=== PATIENT | female | born 1950 | race Caucasian/White ===

== ENCOUNTER 2017-12-20 08:27 | Inpatient (IN) | payer MEDICARE, OTHER ==
--- NOTE | 2017-11-30 10:55 | ANES ---
Anesthesia Pre Procedure Eval HOME MEDICATIONS pantoprazole 40 mg tablet,delayed release 40 mg PO DAILY #90 tab 09/25/17 [Last Taken Unknown] cholecalciferol (vitamin D3) 2,000 unit capsule 2,000 unit PO DAILY 09/27/17 [Last Taken Unknown] doxylamine succinate 25 mg tablet 50 mg PO HS PRN 09/27/17 [Last Taken Unknown] gabapentin 300 mg capsule 300 mg PO BID 09/27/17 [Last Taken Unknown] tramadol 50 mg tablet 50 mg PO Q8H PRN tab 09/27/17 [Last Taken Unknown] atorvastatin 40 mg tablet 40 mg PO DAILY #90 tab 10/31/17 [Last Taken Unknown] alendronate 70 mg tablet 70 mg PO QWEEK #4 tab 11/01/17 [Last Taken Unknown] clobetasol 0.05 % topical cream 1 applic TP DAILY 11/01/17 [Last Taken Unknown] calcium citrate 200 mg (950 mg) tablet 200 mg PO DAILY tab 11/09/17 [Last Taken Unknown] Allergies/Adverse Reactions: Allergies Allergy/AdvReac Type Severity Reaction Status Date / Time oxycodone Allergy Mild rapid Verified 11/29/17 08:25 heart rate, dizziness, nausea - Planned Procedure Planned Procedure: L Arthroplasty Total Knee Medication List Reviewed:: Yes Allergies Verified: Yes Medical History (Last Reviewed 11/30/17 @ 10:53 by Luke Gomez CRNA) Hyperlipidemia (Chronic) GERD (gastroesophageal reflux disease) (Chronic) Onset Date: Unknown Anemia Onset Date: Unknown CAD (coronary artery disease) Onset Date: Unknown COPD (chronic obstructive pulmonary disease) Onset Date: Unknown Chronic back pain Onset Date: Unknown History of kidney stones IBS (irritable bowel syndrome) Onset Date: Unknown Incontinence Onset Date: Unknown Migraines Onset Date: Unknown Nerve pain Onset Date: Unknown Osteoporosis Onset Date: Unknown Palpitations Onset Date: Unknown Sinusitis Onset Date: Unknown Vitamin D deficiency Onset Date: Unknown Surgical History (Last Reviewed 11/30/17 @ 10:53 by Luke Gomez CRNA) History of hernia surgery H/O section Onset Date: Unknown H/O dilation and curettage Onset Date: Unknown H/O left knee surgery Onset Date: ~03/2017 H/O oophorectomy Onset Date: Unknown H/O tubal ligation Onset Date: Unknown H/O vaginal surgery Onset Date: Unknown History of cholecystectomy Onset Date: Unknown Family History (Last Reviewed 11/30/17 @ 10:53 by Luke Gomez CRNA) Aunt Breast cancer Brother Diabetes Brother Irregular heart rate Father Myocardial infarction Diabetes Cancer Grandfather Diabetes Grandmother Breast cancer Diabetes - Family Anesthesia History Family History:: no untoward family reactions to anesthesia, no familial bleeding tendencies, no family history of clotting disorders, no family history of premature - Airway/Neck/Teeth Within Normal Limits:: Yes Denture Type: Full- Upper Mallampatti Score: 1 Thyromental (T-M) distance: > 6 cm Mandibulo Hyoid distance: > 3 cm - Respiratory Smoking Status: Never smoker Discussed smoking cessation including day of surgery: No Sleep Apnea currently treated: No Sleep Apnea by current assessment: No Discussed Risks/Treatment of MARIBELL: No - Cardiovascular Tolerates Activity: Poor Heart Sounds: S1 & S2, Regular - Anesthesia Assessment and Plan ASA Class: PS, III Anesthesia Type Plan: Block - Left ultrasound guided peripheral nerve block for postop analgesia, Spinal
[~2017-12-20 08:27] MED LIST: MORPHINE SULFATE 15 MG TABLET.SA PO PRN; ROPIVACAINE HCL/PF 100 MG, EPINEPHrine 0.2 MG, KETOROLAC TROMETHAMINE 30 MG in NORMAL S... IJ PRN; TRANEXAMIC ACID 1,000 MG in NORMAL SALINE 100 ML IV PRN; ceFAZolin SODIUM 1 GM VIAL IV PRN
[2017-12-20] MEDS: RINGER'S SOLUTION,LACTATED 1,000 ML IV PRN ×4 (09:38→19:21)
[2017-12-20] MEDS ORDERED: ONDANSETRON HCL/PF 2 MG/ML VIAL IV PRN (12:21)
[2017-12-20] MEDS ORDERED: ZOLPIDEM TARTRATE 5 MG TABLET PO PRN (12:21)
[2017-12-20] MEDS ORDERED: MAGNESIUM HYDROXIDE 30 ML UDC PO PRN (12:21)
[2017-12-20] MEDS ORDERED: MAG HYDROX/ALUMINUM HYD/SIMETH 30 ML UDC PO PRN (12:21)
[2017-12-20] MEDS ORDERED: diphenhydrAMINE HCL 50 MG/ML VIAL IV PRN (12:21)
[2017-12-20] MEDS ORDERED: DEXTROSE 5%-LACTATED RINGERS 1,000 ML IV PRN (12:21)
[2017-12-20] MEDS ORDERED: ACETAMINOPHEN 500 MG TABLET PO PRN (12:21)
[2017-12-20] MEDS ORDERED: DOXYLAMINE SUCCINATE 50 MG PO PRN (12:23)
--- NOTE | 2017-12-20 12:26 | OR ---
Operative Report - Dictated Report Narrative: Date: 12/20/2017 Preoperative diagnosis: Left Knee degenerative joint disease. Postoperative diagnosis: Left Knee degenerative joint disease. Procedure: Left Total knee arthroplasty. Surgeon: Bob Woods M.D. Freelance Recruiter: Ernesto Jaeger PA-C Anesthesia: Spinal with regional block and local periarticular joint injection. Complications: None Specimens: Bone for disposal. Estimated blood loss: Minimal. Tourniquet time: 90 Minutes at 350 millimeters of mercury. Retained implants: Depuy Attune size 6 narrow left lugged cemented posterior stabilized femoral component. Size 4 fixed-bearing cemented tibial platform. 6 by 5 millimeter posterior stabilized cross-linked tibial insert. 32 millimeter medialized patella button. Indications: Mrs. Mackey is a 67-year-old female who has had long-standing left knee pain and arthrosis. This patient was followed in my clinic for period of time with significant complaints of left knee pain consistent with arthritic changes. She had failed conservative measures including, but not limited to, activity modification, passage of time, medications, and other conservative measures. Patient wished to proceed with surgical treatment. The risks, benefits, and alternatives were discussed in clinic. The risks of , blood clots, bleeding, infection, nerve/tendon blood vessel/ injury, malposition of components, intraoperative fracture, postoperative limited range of motion, persistent pain, failure of components, and need for additional procedures. Patient wished to proceed consent was obtained after answering all questions. Procedure: After marking the correct extremity on the floor, the patient was taken to the operating room. A timeout was performed. IV antibiotics consisting of Ancef were administered prior to the procedure. A regional followed by spinal anesthetic was induced by anesthesia, per my request, on the operative table with all bony prominences well-padded. Chanel catheter was placed, and a bump was placed under the operative side buttock. SCDs and ROMY hose were utilized on the nonoperative leg. A well-padded tourniquet was applied to the operative thigh. The operative leg was then pre-scrubbed with alcohol prepped, and draped in a standard sterile fashion. After exsanguinating the extremity with an Esmarch bandage, the tourniquet was inflated. After marking out the anterior knee for standard incision centered over the patella, the skin was incised and dissected down to the joint retinaculum. The joint retinaculum was marked out as well as the horizontal axis of the patella, and a standard medial parapatellar arthrotomy was then made. The most proximal aspect of the quadriceps tendon and the patella tendon insertion were protected from release. A partial synovectomy was performed as well as a resection of the infrapatellar fat pad. The distal femoral fat pad proximal to the trochlea was also resected using cautery. The soft tissues were elevated off the medial aspect of the proximal tibia using a Frank elevator ensuring that we did not transect the medial collateral ligament. Upon initial evaluation range of motion was approximately 5 degrees to 120 degrees of flexion. There were signs of advanced arthrosis in the medial, lateral, and patellofemoral joint spaces. There were large marginal osteophytes which were removed with a rongeur. The knee was hyperflexed and the patella was tucked laterally. Protecting the surrounding soft tissues with Homans, an entry drill was placed down the femoral canal using Whitesides line for guidance into the entry point. The intramedullary femoral alignment nicolle was utilized in order to cut the distal fe mur in 5 degrees of valgus resecting 10 millimeters of bone. Next the distal femur was sized to a size 6. A posterior referencing guide was utilized to place the distal femoral cutting block in 3 degrees of external rotation. This was pinned into place. The rotation was confirmed both visually and based on anatomic landmarks. The 4 in 1 cutting jig of the appropriate size was utilized in order to make all bony cuts. The angle wing was used to ensure no notching. Retractors were utilized in order to protect surrounding soft tissues. This cut did not result in any excessive notching. We then cut the box centered over the distal femur. This allowed for resection of the anterior and posterior cruciate ligaments. I then turned my attention to the preparation of the tibia. Using an extra medullary tibial alignment nicolle, 5 millimeters of bone was resected off the medial articular surface. This was made perpendicular to the mechanical axis of the joint with the alignment nicolle centered over the ankle mortise. The alignment nicolle was checked and was noted to be parallel to the mechanical axis, centered over the medial one third of the tibial tubercle, paralleling the anterior surface of the tibia. We then turned our attention to the remaining meniscus and soft tissues. These were removed while protecting the surrounding ligaments and soft tissues. The marginal osteophytes off the anterior, posterior, medial, lateral aspects of the femur and tibia were removed. The tibia was sized out to a size 4. Next the tibia was drilled and punched in an externally rotated position. Next the trial femur and a series of tibial inserts were utilized in order to allow for full extension and maximal flexion. It was found that a 5 millimeter insert gave the best range of motion and stability at multiple flexion points as well as at full extension there was less than 2 mm of gapping both medially and laterally. There is minimal anterior translation with the knee at 90 degrees of flexion and no signs of being able to dislocate the knee. The patella was then prepared. The initial thickness was 22 millimeters. This was reamed down to 12 millimeters parallel to the anterior surface of the patella. It was sized out to a size 32 medialized patella button. This was then drilled and trialed. Without any medial restraint the patella tracked appropriately and did not sublux or dislocate. At this point, it was felt these were the appropriate sized implants, and all trials were removed. The standard periarticular joint injection consisting of ropivacaine, Toradol, and epinephrine were injected into the periarticular joint tissues. The bony surfaces were thoroughly irrigated with a pulsatile-suction saline irrigation device. A bone plug from the prior resected anterior chamfer cut was placed into the drill hole at the distal femur. The bony surfaces were then dried in preparation for placement of the implants. The cement was vacuum mixed per the jack tamp operator's instructions. The cement was placed on the dry bony surfaces and posterior aspect of the implants. The implants were impacted into place, removing all extruded cement. At this point anesthesia administered tranexamic acid per protocol intravenously. The knee was placed in extension with axial loading with the trial insert while the cement cured. Once the cement cured, all remaining extruded cement was removed. The knee was placed through a range of motion with the trial insert to ensure appropriate range of motion and stability. Final range of motion was approximately 0 to 120 degrees. The knee was again thoroughly irrigated with pulsatile saline lavage. The final polyethylene insert was then impacted into place ensuring no retained soft tissues. The remaining periarticular joint injection was injected. A medium Hemovac drain was placed exiting superior laterally. The knee was then placed over a triangle and the arthrotomy was closed with interrupted #1 Vicryl after thoroughly irrigating the joint. The deep and subcutaneous tissues were closed with interrupted 0 and 3-0 Vicryl respectively. Skin was closed with a running subcutaneous 3-0 Monocryl and Prineo Dermabond dressing. 4 x 4's, Sof-Rol, and a full leg Ascencion wrap were applied. All sponge, needle, blade, and instrument counts were correct prior to closing the wounds. Postoperative condition: The patient was awoken and transferred to the postanesthesia care unit in stable condition. Plan is to be admitted to the inpatient medical/surgical floor postoperatively for 24 hours of IV antibiotics, physical therapy, occupational therapy, and medical comanagement. Patient will be weightbearing as tolerated with range of motion as tolerated. DVT prophylaxis will be with SCDs, ROMY hose, and pharmacological anticoagulation. Anticipated hospital stay is approximately 1-3 days.
--- NOTE | 2017-12-20 13:33 | ANES ---
Post Anesthesia Discharge - Transfer of Care Transfer of Care handoff given to nurse: Yes - Discharge from PACU Discharge from PACU when meets criteria: Yes
--- NOTE | 2017-12-20 13:33 | ANES ---
Post Anesthesia Assessment - Vital Signs Vitals: Last Vital Signs Temp 36.3 C 12/20/17 13:05 Pulse 68 12/20/17 13:05 Resp 24 H 12/20/17 13:05 BP 102/51 12/20/17 13:05 Pulse Ox 95 12/20/17 13:05 Airway Patency: Normal - Mental Status Level Of Consciousness: Awake - Pain Level Pain Score: 0 - N/V Assessment Nausea/Vomiting Presence: None Dehydration:: No
--- NOTE | 2017-12-20 13:36 | ANES ---
Anesthesia Procedure Note Procedure Note: ANESTHESIA PROCEDURE NOTE Date of procedure:[]. 12/20/2017 Time of procedure:[]. 1030 Performed by: Daniel Mejia CRNA Coordinator Cardiopulmonary Services: [] Fay Mckeon RN . Preprocedure diagnosis: []. Left knee DJD. Desire for postoperative analgesia. Post procedure diagnosis: Same. Procedure:[] Ultrasound-guided left adductor canal block. Indications: []. Postoperative analgesia. Findings: [] Patient brought to operating room #2 and placed in a supine position. Patient was given IV sedation. Patient's left inner thigh was prepped with ChloraPrep. Ultrasound was utilized to identify abductor canal. 1 mL of 1% Xylocaine was injected into the skin and subcutaneous tissue at the target site. 20-gauge 4 inch Stimuplex regional block needle was advanced under ultrasound guidance until tip of needle was located in the adductor canal. 20 mL of 0.25% Marcaine with epinephrine 1-200 was injected with adequate spread of local anesthesia noted. EBL: Minimal. Fluids: N/A. Specimen: N/A. Post procedure condition: The patient tolerated the procedure well. No complications were noted. Thank you for this consultation Daniel Mejia CRNA
[2017-12-20] MEDS: KETOROLAC TROMETHAMINE 15 MG/ML VIAL IV SCH ×2 (13:47→19:21)
[2017-12-20] MEDS: MORPHINE SULFATE 2 MG/ML DISP.SYRIN IV PRN ×2 (14:28→15:44)
[2017-12-20] MEDS: ceFAZolin SODIUM 1 GM in DEXTROSE 5 % IN WATER 100 ML IV SCH ×4 (15:41→21:38)
[2017-12-20] MEDS: GABAPENTIN 300 MG CAPSULE PO SCH ×2 (16:02→21:08)
[2017-12-20] MEDS: MORPHINE SULFATE 10 MG/0.5 ML SYRINGE PO PRN ×2 (17:38→23:08)
[2017-12-20] MEDS ORDERED: ROSUVASTATIN CALCIUM 20 MG TABLET PO SCH (21:00)
[2017-12-20] MEDS ORDERED: SENNOSIDES/DOCUSATE SODIUM 1 TAB TABLET PO SCH (21:00)
[2017-12-20] MEDS: MORPHINE SULFATE 15 MG TABLET.SA PO SCH (21:24)
[2017-12-21] MEDS: MORPHINE SULFATE 10 MG/0.5 ML SYRINGE PO PRN (01:49)
[2017-12-21] MEDS: KETOROLAC TROMETHAMINE 15 MG/ML VIAL IV SCH ×3 (01:50→15:34)
[2017-12-21] MEDS: ceFAZolin SODIUM 1 GM in DEXTROSE 5 % IN WATER 100 ML IV SCH ×2 (04:05)
[2017-12-21 05:35] LABS: Hematocrit 36.3 % (37.0-47.0); Hemoglobin 11.3 gm/dL (12.5-16.0); Mean Cell Volume 92.8 fl (78-100); Mean Corpuscular Hemoglobin 28.9 pg (27-31); Mean Corpuscular Hgb Conc 31.1 g/dl (32-36); Mean Platelet Volume 9.5 fl (8-12.5); Platelet Count 306 K/mm3 (150-450); Red Blood Count 3.91 M/mm3 (4.2-5.4); Red Cell Distribution Width 12.3 % (11.5-14.0); White Blood Count 10.7 K/mm3 (4.0-10.5)
[2017-12-21 05:40] LABS: Anion Gap 9.3 mmol/L (6.8-13.8); BUN/Creatinine Ratio 8.9 (9.0-21.6); Calcium * 7.6 mg/dL (7.9-10.9); Carbon Dioxide 30.7 mmol/L (24-32.6)
[2017-12-21] MEDS: GABAPENTIN 300 MG CAPSULE PO SCH ×2 (06:48→15:33)
[2017-12-21] MEDS ORDERED: PANTOPRAZOLE SODIUM 40 MG TABLET.EC PO SCH (07:00)
[2017-12-21] MEDS: MORPHINE SULFATE 15 MG TABLET.SA PO SCH (08:15)
[2017-12-21] MEDS ORDERED: CHOLECALCIFEROL 1,000 UNIT CAPSULE PO SCH (09:00)
[2017-12-21] MEDS ORDERED: CALCIUM CARBONATE 500 MG TAB.CHEW PO SCH (09:00)
[2017-12-21] MEDS ORDERED: CLOBETASOL PROPIONATE 15 APPL TUBE TP SCH (09:00)
[2017-12-21] MEDS ORDERED: ENOXAPARIN SODIUM 40 MG/0.4 ML SYRG SC SCH (11:22)
--- NOTE | 2017-12-21 16:22 | DS ---
(1) Acute blood loss anemia Problem: Acute (2) Status post total left knee replacement Problem: Acute (3) CAD (coronary artery disease) Problem: Chronic (4) COPD (chronic obstructive pulmonary disease) Problem: Chronic Qualifiers: (5) GERD (gastroesophageal reflux disease) Problem: Chronic Qualifiers: (6) Hyperlipidemia Problem: Chronic Qualifiers: (7) Osteoporosis Problem: Chronic (8) Nicotine abuse Problem: Chronic Description of Stay: Mrs. Mackey was admitted to the floor after undergoing left total knee arthroplasty. Tolerated this well. Was admitted to the floor postoperatively for 24 hours of IV antibiotics, pain control, medical comanagement, and occupational and physical therapy. OT and PT were consulted to assist with activities of daily living and ambulation. Was made weightbearing as tolerated with range of motion as tolerated. Pain was initially controlled with IV regimen. This was transitioned to oral once tolerating a by mouth intake. Was resumed on home diet and medications. Had a Chanel catheter inserted and the operating room which was discontinued on postoperative day 1. A drain was placed intraoperatively into the knee which was discontinued on postoperative day 1. Lovenox SCD and ROMY hose were utilized for DVT prophylaxis. Vital signs remained stable to the hospital course. Serial labs were obtained which showed a final hemoglobin of 11.3 grams. BMP was reviewed and was stable. Physical examination throughout the hospital course showed an extremity that had sensation that was intact to light touch, palpable pulses, a benign wound, motor intact to the toes, ankle, and knee. Knee range of motion was approximately 5 degrees to 60 degrees. Once an oral pain regimen was tolerated and physical therapy goals were met, it was felt that they were stable for discharge to home. Instructions: Continue with weightbearing as tolerated and range of motion as tolerated. It is okay to shower and get the wound wet as long as there is no drainage from the wound. Do not bathe or soak the wound. If there is any drainage from the wound keep the wound clean and dry and cover with dry gauze and tape. Change every 2- 3 days as needed if there is any drainage. Cover wound while showering if there is any drainage. Continue with physical therapy. Resume home diet. Report any fever over 101.5 Fahrenheit, uncontrolled pain, increased drainage, foul odor of drainage, new or increased calf pain or shortness of breath, or any other significant complaints. A 325mg dialy aspirin will be started after finishing anticoagulation if not allergic. Continue with ROMY hose on the operative extremity until instructed otherwise. No driving until instructed otherwise. Follow up in approximately 10-14 days. Procedures Performed: see notes below List Procedures: Left total knee arthroplasty Results and Findings: Lab Pending Results 12/21/17 05:15: WBC 10.7 H, RBC 3.91 L, Hgb 11.3 L, Hct 36.3 L, MCV 92.8, MCH 28.9, MCHC 31.1 L, RDW 12.3, Plt Count 306, MPV 9.5 12/21/17 05:15: Sodium 142, Plasma Sodium 142, Potassium 4.0 D, Chloride 106, Carbon Dioxide 30.7, Anion Gap 9.3, BUN 8, Creatinine 0.90, Est GFR (Non-Af Amer) 66, BUN/Creatinine Ratio 8.9 L, Random Glucose 115 H, Calcium 7.6 L Discharge Location: Home Disposition: Home self-care Condition: Good Discharge Activity: Activity as tolerated, Weight bearing Discharge Diet: General/regular food Referrals: Kathy Alexander FNP [Primary Care Provider] - Prescriptions (Any new or edited meds): Morphine Sulfate 1 - 2 tab PO Q4H PRN #60 tab PRN Reason: Pain Morphine Sulfate [Ms Contin] 15 mg PO Q12H #20 tablet.sa Rivaroxaban [Xarelto] 10 mg PO DAILY #7 tab Sennosides/Docusate Sodium [Senokot-S] 2 tab PO HS #60 tablet Complete Home Medications List: Complete Home Medication List: pantoprazole 40 mg tablet,delayed release 40 mg PO DAILY #90 tab 09/25/17 cholecalciferol (vitamin D3) 2,000 unit capsule 2,000 unit PO DAILY 09/27/17 doxylamine succinate 25 mg tablet 50 mg PO HS 09/27/17 atorvastatin 40 mg tablet 40 mg PO DAILY #90 tab 10/31/17 alendronate 70 mg tablet 70 mg PO QWEEK #4 tab 11/01/17 calcium citrate 200 mg (950 mg) tablet 200 mg PO DAILY tab 11/09/17 gabapentin 300 mg capsule 300 mg PO DAILY cap 12/01/17 Gabapentin 600 mg PO DAILY 12/20/17 Morphine Sulfate 1 - 2 tab PO Q4H PRN #60 tab 12/21/17 Morphine Sulfate [Ms Contin] 15 mg PO Q12H #20 tablet.sa 12/21/17 Rivaroxaban [Xarelto] 10 mg PO DAILY #7 tab 12/21/17 Sennosides/Docusate Sodium [Senokot-S] 2 tab PO HS #60 tablet 12/21/17 Amb Orders for Discharge: PT Evaluation and Treatment* Facility: [facility], Location: Rehabilitation Services
[2017-12-21 17:41] VITALS: BP 140/58
== END 2017-12-21 17:20 | disposition home or self-care (01) | DRG 470 ==
LOC: MS 08:27 → EDSTATUS 10:15
PROVIDERS: ADMIT Orthopaedic Surgery; ATTEND Orthopaedic Surgery
CPT/HCPCS: 36415; 73560; 80048; 85027; 90686; 97110; 97116; 97161; 97165; J2405

== ENCOUNTER 2017-12-31 14:54 | Observation (INO) | payer MEDICARE, OTHER ==
--- NOTE | 2017-12-31 15:48 | ERNOTE ---
Medical Problem HPI - Narrative Date of Service: 12/31/17 - Patient comes to the ER complaining of nausea and vomiting off and on for the past 5-6 days. She is also concerned with being cold and having shaking chills. - General Chief Complaint: Nausea/Vomiting Time Seen by Provider: 12/31/17 15:10 Source: patient, family Exam Limitations: no limitations - Immun/Allergies/Home Medications Immunizations: IMMUNIZATION HX Immunizations Up to Date Yes History of Influenza Vaccine Yes Hx Pneumococcal Vaccination Yes Allergies/Adverse Reactions: Allergies oxycodone Allergy (Mild, Verified 12/31/17 15:19) rapid heart rate, dizziness, nausea Home Medications: HOME MEDICATIONS cholecalciferol (vitamin D3) 2,000 unit capsule 2,000 unit PO DAILY 09/27/17 [Last Taken 12/19/17] atorvastatin 40 mg tablet 40 mg PO DAILY #90 tab 10/31/17 [Last Taken 12/19/17] alendronate 70 mg tablet 70 mg PO QWEEK #4 tab 11/01/17 [Last Taken 12/19/17] gabapentin 300 mg capsule 300 mg PO DAILY cap 12/01/17 [Last Taken 12/19/17] RX: Gabapentin 600 mg PO DAILY 12/20/17 [Last Taken Unknown] RX: Morphine Sulfate 1 - 2 tab PO Q4H PRN #60 tab 12/21/17 [Last Taken Unknown] RX: Morphine Sulfate [Ms Contin] 15 mg PO Q12H #20 tablet.sa 12/21/17 [Last Taken Unknown] RX: Sennosides/Docusate Sodium [Senokot-S] 2 tab PO HS #60 tab 12/21/17 [Last Taken Unknown] pantoprazole 40 mg tablet,delayed release 40 mg PO DAILY #90 tab 12/25/17 [Last Taken Unknown] - Pain Score Pain Score #1 Pain Score: 0 - History of Present History Narrative: She also complains of feeling very hot and cold and having shaking chills. She has left the dressing in place from a left knee replacement done by Dr. Woods on the Nov. when removed, there does not appear to be any cellulitis or infection. There is no drainage. She did have a catheter in her bladder for the surgery. She complains of SOB only when she was having the shaking chills. She dos not complain of pain. She is afebrile on admission. Date (Duration): 12/20/17 Timing: getting worse, intermittent Severity: moderate Modifying Factors - (Improves): Present: other - nothing Modifying Factors - (Worsens): Present: other - nothing Review of Systems - Review of Systems Constitutional: Present: fever, chills, fatigue EYE: Present: no symptoms reported ENT: Present: no symptoms reported Respiratory: Present: no symptoms reported, other - smoker Cardiology: Present: no symptoms reported, other - denies pain Gastrointestinal/Abdominal: Present: nausea, vomiting, eating less. Absent: diarrhea Genitourinary: Present: no symptoms reported Musculoskeletal: Present: no symptoms reported Skin: Present: no symptoms reported. Absent: rash, change in color Neurological: Present: no symptoms reported Endocrine: Present: no symptoms reported Hematologic/Lymphatic: Present: no symptoms reported Psych: Present: no symptoms reported All Other Systems: All systems neg except as marked Medical History (Last Reviewed 12/31/17 @ 15:16 by Fay Duarte RN) Hyperlipidemia (Chronic) Osteoporosis (Chronic) Onset Date: Unknown Migraines (Chronic) Onset Date: Unknown GERD (gastroesophageal reflux disease) (Chronic) Onset Date: Unknown CAD (coronary artery disease) (Chronic) Onset Date: Unknown COPD (chronic obstructive pulmonary disease) (Chronic) Onset Date: Unknown Chronic back pain (Chronic) Onset Date: Unknown Anemia Onset Date: Unknown History of kidney stones IBS (irritable bowel syndrome) Onset Date: Unknown Incontinence Onset Date: Unknown Nerve pain Onset Date: Unknown Palpitations Onset Date: Unknown Sinusitis Onset Date: Unknown Vitamin D deficiency Onset Date: Unknown Surgical History: Surgical History (Last Reviewed 12/31/17 @ 15:16 by Fay Duarte RN) History of hernia surgery right inguinal, hiatal hernia Right trigger finger surgery, 3rd digit S/P total knee arthroplasty Onset Date: ~12/20/17 left H/O section Onset Date: Unknown H/O dilation and curettage Onset Date: Unknown H/O left knee surgery Onset Date: ~03/2017 Dr Puente at [facility] H/O oophorectomy Onset Date: Unknown H/O tubal ligation Onset Date: Unknown H/O vaginal surgery Onset Date: Unknown History of cholecystectomy Onset Date: Unknown Family History: Family History (Last Reviewed 12/31/17 @ 15:16 by Fay Duarte RN) Aunt Breast cancer Brother Diabetes Brother Irregular heart rate Father Myocardial infarction Diabetes Cancer Grandfather Diabetes Grandmother Breast cancer Diabetes Social History: Preferred Language Syriac Do you have any synagogue or No cultural preference? Smoking Status Current every day smoker Alcohol Use none Drug Use none (Last Updated 12/26/17 @ 10:41 by Bob Woods MD) No Social History Section defined Physical Exam - Physical Exam General Appearance: Present: wd/wn, alert, mild distress, obese, other - shaking at times concerned with being cold Head Exam: Present: normal inspection, no evidence of injury Eye Exam: Normal inspection: bilateral, PERRL: bilateral, EOMI: bilateral Ears, Nose, Throat: Present: normal ENT inspection, normal pharynx Neck: Present: normal inspection, nontender Respiratory: Present: no respiratory distress, no accessory muscle use, chest nontender, lungs clear, rales - few rales at bilateral bases, otherwise clear Cardiovascular/Chest: Present: regular rate, rhythm, no murmur, normal pe ripheral pulses Peripheral Pulses: N=norm/S=strong/W=weak/B=bound/A=absent: Carotid (R): Normal, Carotid (L): Normal, Radial (R): Normal, Dorsalis-pedis (R): Normal, Dorsalis- pedis (L): Normal Gastrointestinal/Abdominal: Present: normal bowel sounds, nontender, nondistended, soft Rectal Exam: Present: deferred Pelvic Exam: Present: deferred Back Exam: Present: normal inspection, normal range of motion, no CVA tenderness, no vertebral tenderness Extremity Exam: Present: normal except - - mild tenderness around incision and knee joint of surgery (wound clean and dry), mild left pedal edema with decrease in ROM left knee post surgical. 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 - Vital Signs Patient's Vital Signs:: I have reviewed the patient's vital signs. Vital Signs: Vital Signs 12/31/17 15:05 Temperature 36.5 C Pulse Rate 85 Respiratory Rate 16 Blood Pressure 164/85 H O2 Sat by Pulse Oximetry 98 - EKG EKG: NSR EKG read: Interp. by me EKG Comments: Essentially normal - X-Ray X-Ray #1 X-Ray: chest Interpretation: Interp. by me X-ray Comments: NAD, cardiolmegaly - CT/Ultrasound CT/Ultrasound Narrative: No pulmonary emboli; aorta and vasculature wnl. No infiltrates or masses. See report. - Progress/Reassessment Chief Complaint: Nausea/Vomiting Progress:: Unchanged Progress Note-Subjective: 12/31/17 18:02 D-dimer was elevated to 2.1. CT scan of chest ruled out pulmonary emboli. Plan - Plan Plan: Dr. Woods to examine surgical area. Departure Clinical Impression: Nausea & vomiting, Chills (without fever) - Departure Disposition: Short Term Hospital Inpatient Condition: Fair
[2017-12-31] MEDS: NORMAL SALINE 1,000 ML IV PRN (15:49)
[2017-12-31 15:55] LABS: Hematocrit 35.1 % (37.0-47.0); Hemoglobin 11.6 gm/dL (12.5-16.0); Mean Cell Volume 88.2 fl (78-100); Mean Corpuscular Hemoglobin 29.1 pg (27-31); Mean Platelet Volume 8.7 fl (8-12.5); Neutrophil # 5.9 K/mm3 (1.3-6.0); Neutrophil % 68.5 % (42-75.0); Platelet Count 497 K/mm3 (150-450); Red Blood Count 3.98 M/mm3 (4.2-5.4); Red Cell Distribution Width 11.9 % (11.5-14.0); White Blood Count 8.5 K/mm3 (4.0-10.5)
[2017-12-31] MEDS ORDERED: DEXTROSE 5 % IN WATER 100 ML BAG IV ONE (16:18)
[2017-12-31 16:20] LABS: Troponin I Less than 0.017 ng/mL (0.00-0.10)
[2017-12-31 16:27] LABS: ALT 21 U/L (19-67); AST 14 U/L (0-48); Albumin * 2.9 gm/dl (3.4-5.0); Alkaline Phosphatase * 84 U/L (50-170); BNP * 227 pg/mL (5-325); BUN/Creatinine Ratio 7.5 (9.0-21.6); Bilirubin, Total 0.5 mg/dL (0.0-1.1); Blood Urea Nitrogen 5 mg/dL (3-23); Ca. Corrected For Albumin 8.7 mg/dL (8.4-10.2); Calcium * 8.1 mg/dL (7.9-10.9); Carbon Dioxide 25.2 mmol/L (24-32.6); Chloride 109 mmol/L (97-106); Glucose * 111 mg/dL (70-110); Potassium 3.2 mmol/L (3.4-4.6); Sodium 143 mmol/L (132-142); Total Protein 6.6 gm/dL (6.2-8.2)
[2017-12-31 16:45] LABS: Urine Appearance Slightly Cloudy (CLEAR); Urine Color Yellow
[2017-12-31 16:46] LABS: Urine Bacteria None Seen; Urine Bilirubin Negative (NEGATIVE); Urine Blood Negative /ul (NEGATIVE); Urine Ketone Negative (NEGATIVE); Urine Nitrite Negative (NEGATIVE); Urine Protein Negative (NEGATIVE); Urine RBC None Seen /hpf (0-5); Urine Urobilinogen Normal (NORMAL); Urine WBC 0-5 /hpf (0-5)
[2017-12-31] MEDS ORDERED: ACETAMINOPHEN 500 MG TABLET PO PRN (21:31)
--- NOTE | 2017-12-31 21:45 | HP ---
Chief Complaint - Chief Complaint Date of Service: 12/31/17 Time of Service: 21:33 Chief Complaint: shaking chills, SP L. TKA, leg hot to touch History of Present Illness: Nyasia Mackey is a 67 yo wh. fe. who recently underwent a L TKA. She had been taking Morphine for pain and she thinks maybe the shaking chills is from that. She states the L. knee and leg do not hurt that much. She had a ct scan of the knee and it did not shnow any infectious process. She is admitted to obs for possible sepsis and to R/o an infections process in the recently operated L. knee. Medical History (Last Reviewed 12/31/17 @ 21:14 by Zofia Wayne RN) Hyperlipidemia (Chronic) Osteoporosis (Chronic) Onset Date: Unknown Migraines (Chronic) Onset Date: Unknown GERD (gastroesophageal reflux disease) (Chronic) Onset Date: Unknown CAD (coronary artery disease) (Chronic) Onset Date: Unknown COPD (chronic obstructive pulmonary disease) (Chronic) Onset Date: Unknown Chronic back pain (Chronic) Onset Date: Unknown Anemia Onset Date: Unknown History of kidney stones IBS (irritable bowel syndrome) Onset Date: Unknown Incontinence Onset Date: Unknown Nerve pain Onset Date: Unknown Palpitations Onset Date: Unknown Sinusitis Onset Date: Unknown Vitamin D deficiency Onset Date: Unknown Surgical History: Surgical History (Last Reviewed 12/31/17 @ 21:15 by Zofia Wayne RN) History of hernia surgery right inguinal, hiatal hernia Right trigger finger surgery, 3rd digit S/P total knee arthroplasty Onset Date: ~12/20/17 left H/O section Onset Date: Unknown H/O dilation and curettage Onset Date: Unknown H/O left knee surgery Onset Date: ~03/2017 Dr Puente at [facility] H/O oophorectomy Onset Date: Unknown H/O tubal ligation Onset Date: Unknown H/O vaginal surgery Onset Date: Unknown History of cholecystectomy Onset Date: Unknown Family History: Family History (Last Reviewed 12/31/17 @ 21:15 by Zofia Wayne RN) Aunt Breast cancer Brother Diabetes Brother Irregular heart rate Father Myocardial infarction Diabetes Cancer Grandfather Diabetes Grandmother Breast cancer Diabetes Social History: Patient Lives/Resources 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 Smoking Status Current every day smoker Have you smoked in the past 12 Yes months Do you dip or chew tobacco No Alcohol Use none Drug Use none (Last Updated 12/26/17 @ 10:41 by Bob Woods MD) No Social History Section defined Review Of Systems (GEN) - Review of Systems Generalized/Overall Review: Present: Chills, Malaise. Absent: Fever EENTM: Present: No Symptoms Reported Respiratory: Present: No Symptoms Reported Cardiac: Present: No Symptoms Reported Abdominal: Present: No Symptoms Reported Genitourinary: Present: No Symptoms Reported Musculoskeletal: Present: Other - Soft tissue pain in the L. knee and leg. Neurological: Present: No Symptoms Reported Skin: Present: No Symptoms Reported Endocrine: Present: No Symptoms Reported Immunizations: IMMUNIZATION HX Immunizations Up to Date Yes History of Influenza Vaccine Yes Hx Pneumococcal Vaccination Yes Allergies/Adverse Reactions: Allergies Allergy/AdvReac Type Severity Reaction Status Date / Time oxycodone Allergy Mild rapid Verified 12/31/17 15:19 heart rate, dizziness, nausea Home Medications: HOME MEDICATIONS cholecalciferol (vitamin D3) 2,000 unit capsule 2,000 unit PO DAILY 09/27/17 [Last Taken 12/19/17] atorvastatin 40 mg tablet 40 mg PO DAILY #90 tab 10/31/17 [Last Taken 12/19/17] alendronate 70 mg tablet 70 mg PO QWEEK #4 tab 11/01/17 [Last Taken 12/19/17] gabapentin 300 mg capsule 300 mg PO DAILY cap 12/01/17 [Last Taken 12/19/17] Gabapentin 600 mg PO HS 12/20/17 [Last Taken Unknown] Morphine Sulfate 1 - 2 tab PO Q4H PRN #60 tab 12/21/17 [Last Taken Unknown] Morphine Sulfate [Ms Contin] 15 mg PO Q12H #20 tablet.sa 12/21/17 [Last Taken Unknown] Sennosides/Docusate Sodium [Senokot-S] 2 tab PO HS #60 tab 12/21/17 [Last Taken Unknown] pantoprazole 40 mg tablet,delayed release 40 mg PO DAILY #90 tab 12/25/17 [Last Taken Unknown] Exam - Exam Vital Signs: Vital Signs - Last Taken Temp 36.7 C 12/31/17 20:26 Pulse 84 12/31/17 20:26 Resp 18 12/31/17 20:26 BP 167/97 H 12/31/17 20:26 Pulse Ox 95 12/31/17 20:26 Constitutional: Present: Alert, Oriented x3, Cooperative, Well developed, Well nourished, No distress ENT Exam: Present: normal ENT inspection, hearing grossly normal, pharynx normal Eye Exam: bilateral eye: normal inspection, PERRL, EOMI Neck: Present: non-tender, full range of motion, supple, normal inspection Back Exam: Present: decreased range of motion, vertebral tenderness - in the low back. Breasts: Present: Exam deferred Respiratory: Present: chest non-tender, lungs clear, normal breath sounds, no respiratory distress, no accessory muscle use Cardiovascular/Chest: Present: normal peripheral pulses, regular rate, rhythm, no chest tenderness, no edema, no gallop, no JVD, no murmur, no rub Peripheral Pulses: carotid (R): 2+, carotid (L): 2+, radial (R): 2+, radial (L): 2+ Abdomen: Present: Normal bowel sounds, soft, nontender, nondistended, no rebound tenderness /Rectal: Present: Exam deferred Extremity: Present: normal range of motion, non-tender, normal inspection, no pedal edema, no calf tenderness, normal capillary refill Skin Exam: Present: normal color, warm/dry - Increased calor over the L. knee, lower leg. Lymphatic: Present: no adenopathy Neurologic: Present: material hauler II-XII nml as tested, no motor/sensory deficits, alert, normal mood/affect, oriented x 3 Appearance: Present: appropriate appearance, appropriate insight, neat, no memory impairment Eye contact: Present: cooperative, good eye contact, normal speech Thoughts: Present: normal thought pattern, no apparent hallucination Diagnostic Studies: Abnormal Lab Results 12/31/17 12/31/17 12/31/17 Range/Units 15:30 15:30 15:30 RBC 3.98 L (4.2-5.4) M/mm3 Hgb 11.6 L (12.5-16.0) gm/dL Hct 35.1 L (37.0-47.0) % Plt Count 497 H (150-450) K/mm3 Immature Gran % (Auto) 0.50 H (0.001-0.429) % Immature Gran # (Auto) 0.04 H (0.000-0.0310) K/mm3 Lymphocytes % 19.3 L (20-51) % Monocytes % 11.0 H (0.0-9) % D-Dimer 2.11 H (0.19-0.49) ug/mL Sodium 143 H (132-142) mmol/L Plasma Sodium 143 H (130-142) mmol/L Potassium 3.2 L (3.4-4.6) mmol/L Chloride 109 H (97-106) mmol/L BUN/Creatinine Ratio 7.5 L (9.0-21.6) Random Glucose 111 H (70-110) mg/dL Albumin 2.9 L (3.4-5.0) gm/dl Urine pH (5.0-7.0) pH 12/31/17 Range/Units 16:07 RBC (4.2-5.4) M/mm3 Hgb (12.5-16.0) gm/dL Hct (37.0-47.0) % Plt Count (150-450) K/mm3 Immature Gran % (Auto) (0.001-0.429) % Immature Gran # (Auto) (0.000-0.0310) K/mm3 Lymphocytes % (20-51) % Monocytes % (0.0-9) % D-Dimer (0.19-0.49) ug/mL Sodium (132-142) mmol/L Plasma Sodium (130-142) mmol/L Potassium (3.4-4.6) mmol/L Chloride (97-106) mmol/L BUN/Creatinine Ratio (9.0-21.6) Random Glucose (70-110) mg/dL Albumin (3.4-5.0) gm/dl Urine pH 8.0 H (5.0-7.0) pH Laboratory Results WBC 8.5 K/mm3 (4.0-10.5) 12/31/17 15:30 RBC 3.98 M/mm3 (4.2-5.4) L 12/31/17 15:30 Hgb 11.6 gm/dL (12.5-16.0) L 12/31/17 15:30 Hct 35.1 % (37.0-47.0) L 12/31/17 15:30 MCV 88.2 fl (78-100) 12/31/17 15:30 MCH 29.1 pg (27-31) 12/31/17 15:30 MCHC 33.0 g/dl (32-36) 12/31/17 15:30 RDW 11.9 % (11.5-14.0) 12/31/17 15:30 Plt Count 497 K/mm3 (150-450) H 12/31/17 15:30 MPV 8.7 fl (8-12.5) 12/31/17 15:30 Immature Gran % (Auto) 0.50 % (0.001-0.429) H 12/31/17 15:30 Immature Gran # (Auto) 0.04 K/mm3 (0.000-0.0310) H 12/31/17 15:30 Neutrophils % 68.5 % (42-75.0) 12/31/17 15:30 Lymphocytes % 19.3 % (20-51) L 12/31/17 15:30 Monocytes % 11.0 % (0.0-9) H 12/31/17 15:30 Eosinophils % 0.1 % (0.0-3.0) 12/31/17 15:30 Basophils % 0.6 % (0.0-1.0) 12/31/17 15:30 Nucleated RBC % 0.0 k/mm3 (0-1) 12/31/17 15:30 Neutrophils # 5.9 K/mm3 (1.3-6.0) 12/31/17 15:30 Lymphocytes # 1.65 k/mm3 (1.5-3.5) 12/31/17 15:30 Monocytes # 0.9 k/mm3 (0.0-1.0) 12/31/17 15:30 Eosinophils # 0.0 k/mm3 (0.0-0.7) 12/31/17 15:30 Absolute Basophils 0.1 k/mm3 (0.0-0.1) 12/31/17 15:30 D-Dimer 2.11 ug/mL (0.19-0.49) H 12/31/17 15:30 Sodium 143 mmol/L (132-142) H 12/31/17 15:30 Plasma Sodium 143 mmol/L (130-142) H 12/31/17 15:30 Potassium 3.2 mmol/L (3.4-4.6) L 12/31/17 15:30 Chloride 109 mmol/L (97-106) H 12/31/17 15:30 Carbon Dioxide 25.2 mmol/L (24-32.6) 12/31/17 15:30 Anion Gap 12.0 mmol/L (6.8-13.8) 12/31/17 15:30 BUN 5 mg/dL (3-23) 12/31/17 15:30 Creatinine 0.67 mg/dL (0.4-1.4) 12/31/17 15:30 Est GFR (Non-Af Amer) 93 mL/min (60-130) D 12/31/17 15:30 BUN/Creatinine Ratio 7.5 (9.0-21.6) L 12/31/17 15:30 Random Glucose 111 mg/dL (70-110) H 12/31/17 15:30 Lactic Acid, Venous 0.8 mmol/L (0.4-2.0) 12/31/17 15:30 Calcium 8.1 mg/dL (7.9-10.9) 12/31/17 15:30 Calcium Adj for Albumin 8.7 mg/dL (8.4-10.2) 12/31/17 15:30 Total Bilirubin 0.5 mg/dL (0.0-1.1) 12/31/17 15:30 AST 14 U/L (0-48) 12/31/17 15:30 ALT 21 U/L (19-67) 12/31/17 15:30 Alkaline Phosphatase 84 U/L (50-170) 12/31/17 15:30 Troponin I Less than 0.017 ng/mL (0.00-0.10) 12/31/17 15:30 B-Natriuretic Peptide 227 pg/mL (5-325) 12/31/17 15:30 Total Protein 6.6 gm/dL (6.2-8.2) 12/31/17 15:30 Albumin 2.9 gm/dl (3.4-5.0) L 12/31/17 15:30 Urine Color Yellow 12/31/17 16:07 Urine Appearance Slightly cloudy (CLEAR) 12/31/17 16:07 Urine pH 8.0 pH (5.0-7.0) H 12/31/17 16:07 Ur Specific [place] 1.020 SP.GR. (1.005-1.010) 12/31/17 16:07 Urine Protein Negative mg/dL (NEGATIVE) 12/31/17 16:07 Urine Glucose (UA) Negative mg/dL (NEGATIVE) 12/31/17 16:07 Urine Ketones Negative mg/dL (NEGATIVE) 12/31/17 16:07 Urine Blood Negative /ul (NEGATIVE) 12/31/17 16:07 Urine Nitrate Negative (NEGATIVE) 12/31/17 16:07 Urine Bilirubin Negative mg/dl (NEGATIVE) 12/31/17 16:07 Urine Urobilinogen Normal EU/dl (NORMAL) 12/31/17 16:07 Ur Leukocyte Esterase Negative /ul (NEGATIVE) 12/31/17 16:07 Urine RBC None seen /hpf (0-5) 12/31/17 16:07 Urine WBC 0-5 /hpf (0-5) 12/31/17 16:07 Ur Epithelial Cells 0-5 /hpf (0-5) 12/31/17 16:07 Urine Bacteria None seen (NONE) 12/31/17 16:07 Urine Culture Comments No culture indicated 12/31/17 16:07 Assessment/Plan - Narrative Narrative: IV antibiotics pain management antiemetics morning lab If sepsis is ruled out then discharge to home tomorrow. - Assessment/Plan (1) Chills (without fever) Problem: Acute (2) Status post total left knee replacement Problem: Chronic (3) Nausea & vomiting Problem: Acute Qualifiers: Vomiting type: unspecified Vomiting Intractability: non-intractable Qualified Code(s): R11.2 - Nausea with vomiting, unspecified (4) Nicotine abuse Problem: Chronic (5) Sepsis affecting skin Problem: Acute
[2017-12-31] MEDS ORDERED: ONDANSETRON HCL/PF 2 MG/ML VIAL IV PRN (21:46)
[2018-01-01] MEDS: NORMAL SALINE 1,000 ML IV PRN ×2 (00:39→15:46)
[2018-01-01 06:02] LABS: Hematocrit 34.7 % (37.0-47.0); Hemoglobin 11.4 gm/dL (12.5-16.0); Mean Cell Volume 88.5 fl (78-100); Mean Corpuscular Hemoglobin 29.1 pg (27-31); Mean Corpuscular Hgb Conc 32.9 g/dl (32-36); Mean Platelet Volume 8.9 fl (8-12.5); Neutrophil # 7.4 K/mm3 (1.3-6.0); Neutrophil % 67.5 % (42-75.0); Platelet Count 495 K/mm3 (150-450); Red Blood Count 3.92 M/mm3 (4.2-5.4)
[2018-01-01 06:12] LABS: Albumin * 2.8 gm/dl (3.4-5.0); Anion Gap 14.2 mmol/L (6.8-13.8); BUN/Creatinine Ratio 7.5 (9.0-21.6); Bilirubin, Total 0.4 mg/dL (0.0-1.1); CRP 1.5 mg/dL (0.0-0.9); Ca. Corrected For Albumin 8.6 mg/dL (8.4-10.2); Carbon Dioxide 24.2 mmol/L (24-32.6); Potassium 3.4 mmol/L (3.4-4.6); Total Protein 6.3 gm/dL (6.2-8.2)
[2018-01-01] MEDS: CHOLECALCIFEROL 1,000 UNIT CAPSULE PO SCH (08:31)
[2018-01-01] MEDS: PANTOPRAZOLE SODIUM 40 MG TABLET.EC PO SCH (08:31)
[2018-01-01] MEDS ORDERED: PROCHLORPERAZINE MALEATE 10 MG TABLET PO PRN (11:35)
--- NOTE | 2018-01-01 11:48 | PN ---
Objective - Review of Systems Generalized/Overall Review: Reports: Chills EENTM: Reports: No Symptoms Reported Respiratory: Reports: No Symptoms Reported Cardiac: Reports: No Symptoms Reported Abdominal: Reports: Nausea, Vomiting, Diarrhea - Nausea vomiting and diarrhea are new today and will delay her discharge. Genitourinary Symptoms: Reports: No Symptoms Reported Musculoskeletal Complaints: Reports: Joint Pain - Status post left total knee arthroplasty 5 days Neurological: Reports: No Symptoms Reported Skin: Reports: No Symptoms Reported Endocrine: Reports: No Symptoms Reported - Vitals Vitals: Last Vital Signs Temp 37.1 C 01/01/18 06:33 Pulse 79 01/01/18 06:33 Resp 16 01/01/18 06:33 BP 148/76 01/01/18 06:33 Pulse Ox 96 01/01/18 06:33 - Abnormal Lab Findings Abnormal Lab Findings: Abnormal Lab Results 12/31/17 12/31/17 12/31/17 Range/Units 15:30 15:30 15:30 WBC (4.0-10.5) K/mm3 RBC 3.98 L (4.2-5.4) M/mm3 Hgb 11.6 L (12.5-16.0) gm/dL Hct 35.1 L (37.0-47.0) % Plt Count 497 H (150-450) K/mm3 Immature Gran % (Auto) 0.50 H (0.001-0.429) % Immature Gran # (Auto) 0.04 H (0.000-0.0310) K/mm3 Lymphocytes % 19.3 L (20-51) % Monocytes % 11.0 H (0.0-9) % Neutrophils # (1.3-6.0) K/mm3 ESR (0-15) mm/hr D-Dimer 2.11 H (0.19-0.49) ug/mL Sodium 143 H (132-142) mmol/L Plasma Sodium 143 H (130-142) mmol/L Potassium 3.2 L (3.4-4.6) mmol/L Chloride 109 H (97-106) mmol/L Anion Gap (6.8-13.8) mmol/L BUN/Creatinine Ratio 7.5 L (9.0-21.6) Random Glucose 111 H (70-110) mg/dL C-Reactive Prot, Quant (0.0-0.9) mg/dL Albumin 2.9 L (3.4-5.0) gm/dl Urine pH (5.0-7.0) pH 12/31/17 01/01/18 01/01/18 Range/Units 16:07 05:45 05:45 WBC 11.0 H D (4.0-10.5) K/mm3 RBC 3.92 L (4.2-5.4) M/mm3 Hgb 11.4 L (12.5-16.0) gm/dL Hct 34.7 L (37.0-47.0) % Plt Count 495 H (150-450) K/mm3 Immature Gran % (Auto) (0.001-0.429) % Immature Gran # (Auto) 0.04 H (0.000-0.0310) K/mm3 Lymphocytes % (20-51) % Monocytes % 9.4 H (0.0-9) % Neutrophils # 7.4 H (1.3-6.0) K/mm3 ESR 57 H (0-15) mm/hr D-Dimer (0.19-0.49) ug/mL Sodium (132-142) mmol/L Plasma Sodium (130-142) mmol/L Potassium (3.4-4.6) mmol/L Chloride (97-106) mmol/L Anion Gap (6.8-13.8) mmol/L BUN/Creatinine Ratio (9.0-21.6) Random Glucose (70-110) mg/dL C-Reactive Prot, Quant (0.0-0.9) mg/dL Albumin (3.4-5.0) gm/dl Urine pH 8.0 H (5.0-7.0) pH 01/01/18 Range/Units 06:00 WBC (4.0-10.5) K/mm3 RBC (4.2-5.4) M/mm3 Hgb (12.5-16.0) gm/dL Hct (37.0-47.0) % Plt Count (150-450) K/mm3 Immature Gran % (Auto) (0.001-0.429) % Immature Gran # (Auto) (0.000-0.0310) K/mm3 Lymphocytes % (20-51) % Monocytes % (0.0-9) % Neutrophils # (1.3-6.0) K/mm3 ESR (0-15) mm/hr D-Dimer (0.19-0.49) ug/mL Sodium 146 H (132-142) mmol/L Plasma Sodium 146 H (130-142) mmol/L Potassium (3.4-4.6) mmol/L Chloride 111 H (97-106) mmol/L Anion Gap 14.2 H (6.8-13.8) mmol/L BUN/Creatinine Ratio 7.5 L (9.0-21.6) Random Glucose 113 H (70-110) mg/dL C-Reactive Prot, Quant 1.5 H (0.0-0.9) mg/dL Albumin 2.8 L (3.4-5.0) gm/dl Urine pH (5.0-7.0) pH - Exam Constitutional: Present: Alert, Oriented x3, Cooperative, Well developed, Well nourished, No distress, Middle aged, Obese ENT Exam: Present: normal ENT inspection, hearing grossly normal, pharynx normal Neck: Present: non-tender, full range of motion Breasts: Present: Exam deferred Respiratory: Present: chest non-tender, lungs clear, normal breath sounds, no respiratory distress, no accessory muscle use Cardiovascular/Chest: Present: normal peripheral pulses, regular rate, rhythm, no chest tenderness, no edema, no gallop, no JVD, no murmur, no rub Abdomen: Present: Normal bowel sounds, soft, nontender, nondistended, other - Hyperactive bowel sounds /Rectal: Present: Exam deferred Extremity: Present: normal range of motion - The upper extremities and right lower extremity. Limited motion of the left lower extremity. Some tenderness over the incision site. Some swelling noted as well. 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 Change antirheumatic from ondansetron 2 prochlorperazine 10 mg tablets every 6 hours when necessary 2. Consult placed for Dr. Woods. 3. Stool analysis for culture and sensitivity and C. difficile screening 4. Possible discharge to home later today. - Problems/Diagnosis (1) Chills (without fever) Problem: Acute (2) Status post total left knee replacement Problem: Chronic (3) Nausea & vomiting Problem: Acute Qualifiers: Vomiting type: unspecified Vomiting Intractability: non-intractable Qualified Code(s): R11.2 - Nausea with vomiting, unspecified (4) Nicotine abuse Problem: Chronic (5) Sepsis affecting skin Problem: Acute (6) Diarrhea Problem: Acute Qualifiers: Diarrhea type: unspecified type Qualified Code(s): R19.7 - Diarrhea, unspecified
--- NOTE | 2018-01-01 12:21 | CONS ---
- Reason for consultation (1) Status post total left knee replacement Date of Service: 12/31/17 HPI - General Date of Service: 12/31/17 Narrative: Mrs. Mackey is a 67-year-old female who recently underwent left total knee arthroplasty. She was doing well with regards to her left knee. She denies any excessive pain, swelling, erythema, or drainage. She was seen initially postoperatively in the clinic as she had some mild drainage which resolved with additional Dermabond. She came to the emergency department secondary to nausea and decreased appetite. She states that she was having some chills did not take her temperature. She again states that her left knee is giving her no problems at this time. She has stopped her pain medicines as her knee has felt better and she was concerned that these may be causing her symptoms. Source: patient - History of Present Illness Timing/Duration: 24 hours Severity: mild Associated Symptoms: fever/chills Allergies/Adverse Reactions: Allergies oxycodone Allergy (Mild, Verified 12/31/17 15:19) rapid heart rate, dizziness, nausea Home Medications: Home Medications Medication Instructions Recorded Last Taken cholecalciferol (vitamin D3) 2,000 2,000 unit PO DAILY 09/27/17 12/19/17 unit capsule atorvastatin 40 mg tablet 40 mg PO DAILY #90 tab 10/31/17 12/19/17 alendronate 70 mg tablet 70 mg PO QWEEK #4 tab 11/01/17 12/19/17 gabapentin 300 mg capsule 300 mg PO DAILY cap 12/01/17 12/19/17 Gabapentin 600 mg PO HS 12/20/17 Unknown Morphine Sulfate 1 - 2 tab PO Q4H PRN #60 tab 12/21/17 Unknown Morphine Sulfate [Ms Contin] 15 mg PO Q12H #20 tablet.sa 12/21/17 Unknown Sennosides/Docusate Sodium 2 tab PO HS #60 tab 12/21/17 Unknown [Senokot-S] pantoprazole 40 mg tablet,delayed 40 mg PO DAILY #90 tab 12/25/17 Unknown release Procedures Introduction of Anesthetic Agent into Peripheral Nerves and Plexi, Percutaneous Approach (12/20/17) Introduction of Serum, Toxoid and Vaccine into Muscle, Percutaneous Approach (12/20/17) Replacement of Left Knee Joint with Synthetic Substitute, Cemented, Open Approach (12/20/17) Medications - Medications Current Medications: Current Medications Cholecalciferol (Vitamin D) 2,000 unit PO DAILY NOE Stop: 01/31/18 09:01 Last Admin: 01/01/18 08:31 Dose: 2,000 unit Sodium Chloride (Sodium Chloride 0.9%) 1,000 mls @ 60 mls/hr IV .[id number] PRN PRN Reason: HYDRATION Stop: 01/30/18 15:35 Last Admin: 01/01/18 00:39 Dose: 60 mls/hr Pantoprazole Sodium (Protonix) 40 mg PO DAILY NOE Stop: 01/31/18 09:01 Last Admin: 01/01/18 08:31 Dose: 40 mg Review of Systems - Review of Systems Narrative: Negative for above Generalized/Overall Review: Present: No Symptoms Reported Physical Examination - Exam Narrative: Left lower extremity: Dermabond dressing in place, minimal erythema consistent with surgical intervention but no signs of gross infection, no tenderness to palpation, mild pain with range of motion as would be expected at this point the recovery. No signs of drainage, no excessive calor, no excessive effusion, no calf pain, palpable dorsalis pedis pulse, sensations intact light touch Vital Signs: Vital Signs - Last Taken Temp 37.1 C 01/01/18 06:33 Pulse 79 01/01/18 06:33 Resp 16 01/01/18 06:33 BP 148/76 01/01/18 06:33 Pulse Ox 96 01/01/18 06:33 O2 Oxygen Delivery Method Room Air Constitutional: Present: Alert, Oriented x3 - Results and Findings: Lab/Microbiology results last 24 hrs: Abnormal/Pending Laboratory Last 24 HRS 01/01/18 01/01/18 01/01/18 06:00 05:45 05:45 WBC 11.0 H D RBC 3.92 L Hgb 11.4 L Hct 34.7 L Plt Count 495 H Immature Gran % (Auto) Immature Gran # (Auto) 0.04 H Lymphocytes % Monocytes % 9.4 H Neutrophils # 7.4 H ESR 57 H D-Dimer Sodium 146 H Plasma Sodium 146 H Potassium Chloride 111 H Anion Gap 14.2 H BUN/Creatinine Ratio 7.5 L Random Glucose 113 H C-Reactive Prot, Quant 1.5 H Albumin 2.8 L Urine pH 11/11/18 11/11/18 11/11/18 16:07 15:30 15:30 WBC RBC Hgb Hct Plt Count Immature Gran % (Auto) Immature Gran # (Auto) Lymphocytes % Monocytes % Neutrophils # ESR D-Dimer 2.11 H Sodium 143 H Plasma Sodium 143 H Potassium 3.2 L Chloride 109 H Anion Gap BUN/Creatinine Ratio 7.5 L Random Glucose 111 H C-Reactive Prot, Quant Albumin 2.9 L Urine pH 8.0 H 12/31/17 15:30 WBC RBC 3.98 L Hgb 11.6 L Hct 35.1 L Plt Count 497 H Immature Gran % (Auto) 0.50 H Immature Gran # (Auto) 0.04 H Lymphocytes % 19.3 L Monocytes % 11.0 H Neutrophils # ESR D-Dimer Sodium Plasma Sodium Potassium Chloride Anion Gap BUN/Creatinine Ratio Random Glucose C-Reactive Prot, Quant Albumin Urine pH - Assessments/Findings (1) Status post total left knee replacement Diagnosis(s): At this point I have no further intervention recommended for her knee. She reports the reason she came to the emergency Department due to her decreased appetite and nausea but denies gross signs of infection. She should continue with her regular postoperative course which includes compression to her left knee, ice to her left knee, physical therapy for range of motion and weightbearing as tolerated, and monitoring of the wound. She is artery range for a follow-up next week for which she will keep. With regards to her symptoms for admission I agree with changing her nausea medicine and encouraging her to utilize the bowel regimen. I have no reason to suspect a left knee infection. Her slightly elevated inflammatory markers are consistent with postoperative course and she has been afebrile since she's been here. Problem: Chronic
[2018-01-01] MEDS ORDERED: GABAPENTIN 300 MG CAPSULE PO SCH (21:00)
[2018-01-01] MEDS ORDERED: SENNOSIDES/DOCUSATE SODIUM 1 TAB TABLET PO SCH (21:00)
[2018-01-01] MEDS ORDERED: GABAPENTIN 600 MG TABLET PO SCH (21:00)
[2018-01-02] MEDS: PANTOPRAZOLE SODIUM 40 MG TABLET.EC PO SCH (08:00)
[2018-01-02] MEDS: CHOLECALCIFEROL 1,000 UNIT CAPSULE PO SCH (08:04)
[2018-01-02] MEDS: NORMAL SALINE 1,000 ML IV PRN (08:05)
[2018-01-02] MEDS ORDERED: ASPIRIN 325 MG TABLET.DR PO SCH (09:00)
--- NOTE | 2018-01-02 09:00 | DS ---
(1) Chills (without fever) Problem: Resolved (2) Status post total left knee replacement Problem: Chronic (3) Nausea & vomiting Problem: Resolved Qualifiers: Vomiting type: unspecified Vomiting Intractability: non-intractable Qualified Code(s): R11.2 - Nausea with vomiting, unspecified (4) Nicotine abuse Problem: Chronic (5) Sepsis affecting skin Problem: Resolved (6) Diarrhea Problem: Resolved Qualifiers: Diarrhea type: unspecified type Qualified Code(s): R19.7 - Diarrhea, unspecified Description of Stay: Nyasia Mackey is a 67-year-old female who was admitted through ER for chills and a rule out sepsis. The time of admission she was 3 days post left total knee arthroplasty. The knee was swollen and warm to touch but no redness and no drainage from the incision. She was admitted to observation but yesterday developed nausea vomiting and diarrhea and so her discharge was delayed. The nausea and diarrhea are now gone and she is feeling much better this morning. She also says that the chills are gone. She feels she has lost some of her early mobility as she had postoperatively. She will be discharged to home to continue with physical therapy. Procedures Performed: none Results and Findings: Pending Mircobiology Results 12/31/17 21:50 Blood Blood Culture - Preliminary NO GROWTH 24 HOURS 12/31/17 15:30 Blood Blood Culture - Preliminary NO GROWTH 24 HOURS 12/31/17 15:47 Blood Blood Culture - Preliminary NO GROWTH 24 HOURS 12/31/17 15:30 Blood Blood Culture - Preliminary NO GROWTH 24 HOURS Lab Pending Results 12/31/17 15:30: WBC 8.5, RBC 3.98 L, Hgb 11.6 L, Hct 35.1 L, MCV 88.2, MCH 29.1, MCHC 33.0, RDW 11.9, Plt Count 497 H, MPV 8.7, Immature Gran % (Auto) 0.50 H, Immature Gran # (Auto) 0.04 H, Neutrophils % 68.5, Lymphocytes % 19.3 L, Monocytes % 11.0 H, Eosinophils % 0.1, Basophils % 0.6, Nucleated RBC % 0.0, Neutrophils # 5.9, Lymphocytes # 1.65, Monocytes # 0.9, Eosinophils # 0.0, Absolute Basophils 0.1 12/31/17 15:30: Sodium 143 H, Plasma Sodium 143 H, Potassium 3.2 L, Chloride 109 H, Carbon Dioxide 25.2, Anion Gap 12.0, BUN 5, Creatinine 0.67, Est GFR (Non-Af Amer) 93 D, BUN/Creatinine Ratio 7.5 L, Random Glucose 111 H, Calcium 8.1, Calcium Adj for Albumin 8.7, Total Bilirubin 0.5, AST 14, ALT 21, Alkaline Phosphatase 84, Troponin I Less than 0.017, B-Natriuretic Peptide 227, Total Protein 6.6, Albumin 2.9 L 12/31/17 15:30: Lactic Acid, Venous 0.8 12/31/17 15:30: D-Dimer 2.11 H 12/31/17 16:07: Urine Color Yellow, Urine Appearance Slightly cloudy, Urine pH 8.0 H, Ur Specific [place] 1.020, Urine Protein Negative, Urine Glucose (UA) Negative, Urine Ketones Negative, Urine Blood Negative, Urine Nitrate Negative, Urine Bilirubin Negative, Urine Urobilinogen Normal, Ur Leukocyte Esterase Negative, Urine RBC None seen, Urine WBC 0-5, Ur Epithelial Cells 0-5, Urine Bacteria None seen, Urine Culture Comments No culture indicated 12/31/17 21:50: Lactic Acid, Venous 1.1 01/01/18 05:45: WBC 11.0 H D, RBC 3.92 L, Hgb 11.4 L, Hct 34.7 L, MCV 88.5, MCH 29.1, MCHC 32.9, RDW 12.0, Plt Count 495 H, MPV 8.9, Immature Gran % (Auto) 0.40, Immature Gran # (Auto) 0.04 H, Neutrophils % 67.5, Lymphocytes % 21.3, Monocytes % 9.4 H, Eosinophils % 0.8, Basophils % 0.6, Nucleated RBC % 0.0, Neutrophils # 7.4 H, Lymphocytes # 2.34, Monocytes # 1.0, Eosinophils # 0.1, Absolute Basophils 0.1 01/01/18 05:45: ESR 57 H 01/01/18 05:45: Lipase 387 01/01/18 06:00: Sodium 146 H, Plasma Sodium 146 H, Potassium 3.4, Chloride 111 H, Carbon Dioxide 24.2, Anion Gap 14.2 H, BUN 5, Creatinine 0.67, Est GFR (Non- Af Amer) 93, BUN/Creatinine Ratio 7.5 L, Random Glucose 113 H, Calcium 8.0, Calcium Adj for Albumin 8.6, Total Bilirubin 0.4, AST 15, ALT 22, Alkaline Phosphatase 87, C-Reactive Prot, Quant 1.5 H, Total Protein 6.3, Albumin 2.8 L Discharge Location: Home Disposition: Home self-care Condition: Fair Discharge Activity: Activity as tolerated, Weight bearing - with a walker Discharge Diet: General/regular food Referrals: Kathy Alexander FNP [Primary Care Provider] - Additional Patient Instructions (free text): Please make an appointment to see Kathy Rowan in 2 weeks -Please make TCM appointment unless care home discharge. Thank you! Beth @ [phone]. Complete Home Medications List: Complete Home Medication List: cholecalciferol (vitamin D3) 2,000 unit capsule 2,000 unit PO DAILY 09/27/17 atorvastatin 40 mg tablet 40 mg PO DAILY #90 tab 10/31/17 alendronate 70 mg tablet 70 mg PO QWEEK #4 tab 11/01/17 gabapentin 300 mg capsule 300 mg PO DAILY cap 12/01/17 Gabapentin 600 mg PO HS 12/20/17 Morphine Sulfate 1 - 2 tab PO Q4H PRN #60 tab 12/21/17 Morphine Sulfate [Ms Contin] 15 mg PO Q12H #20 tablet.sa 12/21/17 Sennosides/Docusate Sodium [Senokot-S] 2 tab PO HS #60 tab 12/21/17 pantoprazole 40 mg tablet,delayed release 40 mg PO DAILY #90 tab 12/25/17 Acetaminophen [Tylenol] 500 mg PO Q4H PRN tablet 01/02/18 Aspirin [Aspirin Enteric Coated] 325 mg PO DAILY tablet. 01/02/18
[2018-01-02 11:16] VITALS: BP 137/66
== END 2018-01-02 10:45 | disposition home or self-care (01) ==
LOC: ER 14:54 → MS 14:54
PROVIDERS: ADMIT Family Medicine; ATTEND Family Medicine
DX: J44.9 Chronic obstructive pulmonary disease, unspecified; R11.2 Nausea with vomiting, unspecified; R68.83 Chills (without fever); F17.210 Nicotine dependence, cigarettes, uncomplicated; R19.7 Diarrhea, unspecified; Z96.652 Presence of left artificial knee joint
CPT/HCPCS: 36415; 71010; 71045; 71275; 80053; 81001; 83519; 83605; 83690; 83880; 84484; 85025; 85379; 85652; 86140; 87040; 93005; 96361; 96365; 96375; 99284; G0378; J2405